=== PATIENT | female | born 1985 | race Caucasian/White ===

== ENCOUNTER 2017-01-25 10:07 | Emergency (ER) | payer OTHER ==
[2017-01-25 10:24] VITALS: RESP 18
[2017-01-25 11:00] LABS: COLOR COLORLESS; LEUKOCYTE ESTERASE,URINE NEGATIVE (NEGATIVE); NITRITE,URINE NEGATIVE (NEGATIVE)
--- NOTE | 2017-01-25 11:03 | EDPHY ---
H & P Smoking Status: Never smoked Time Seen by Provider: 01/25/17 10:32 HPI/ROS: CHIEF COMPLAINT: Urinary frequency, abdominal pain HISTORY OF PRESENT ILLNESS: 31-year-old female presents to the emergency department with urinary frequency that began yesterday. Denies urgency or dysuria. No blood in her urine. Last menstrual period was January 12 and she denies . She takes oral contraceptive pills has not "skipped any pills." Denies low back pain. Denies chest pain or difficulty breathing. Denies fevers or chills. Denies any reported trauma. REVIEW OF SYSTEMS: Constitutional: No fever, no chills. Eyes: No double or blurry vision. ENT: No sore throat. Respiratory: No cough, no shortness of breath. Cardiac: No chest pain. Gastrointestinal: No abdominal pain, vomiting or diarrhea. Genitourinary: Urinary frequency as above. No dysuria. Musculoskeletal: No neck or back pain. Skin: No rashes. Neurological: No headache. (Jeanette Abrams) Past Medical/Surgical History: Ovarian cysts (Jeanette Abrams) Social History: and lives in [place] (Jeanette Abrams) Physical Exam: General Appearance: Alert, no distress. Afebrile. Nontoxic appearing Eyes: Pupils equal and round. Extraocular motions are all intact. ENT: Mouth: Mucous membranes moist. Respiratory: No wheezing, rhonchi, or rales, lungs are clear to auscultation. Cardiovascular: Regular rate and rhythm. Gastrointestinal: Abdomen is soft. She has mild tenderness in the suprapubic area. There is no rebound, guarding or masses noted. No CVA tenderness bilaterally. Neurological: Alert and oriented x 3, cranial nerves II through XII grossly intact Skin: Warm and dry, no rashes. Musculoskeletal: Nontender to palpate along the cervical, thoracic or lumbar spine. Neck is supple. Extremities: Full range of motion and no peripheral edema. Psychiatric: Patient is oriented X 3, there is no agitation. (Jeanette Abrams M) Constitutional: Initial Vital Signs Temperature (C) 36.5 C 01/25/17 10:22 Heart Rate 87 01/25/17 10:22 Respiratory Rate 18 01/25/17 10:22 Blood Pressure 136/98 H 01/25/17 10:22 O2 Sat (%) 98 01/25/17 10:22 O2 Delivery Mode Room Air Allergies/Adverse Reactions: No Known Allergies Allergy (Verified 01/25/17 10:21) Home Medications: Medication Instructions Recorded Cephalexin [Keflex] 500 mg PO QID #28 cap 01/25/17 Ortho Tri-Cyclen 28 Tablet 01/25/17 Phenazopyridine HCl [Pyridium] 200 mg PO Q8PRN PRN #6 tab 01/25/17 Medical Decision Making - Diagnostics Imaging: Discussed imaging studies w/ call center manager Radiologist - Diagnostics Imaging Results: Imaging Impressions Abdomen Ultrasound 01/25/17 11:16 Impression: Nondiagnostic assessment of the appendix. If there is further clinical concern, contrast-enhanced CT imaging could be considered. Findings were discussed with JEANETTE ABRAMS PA-C at 12:54, on 01/25/2017. Pelvic/Renal Ultrasound 01/25/17 11:16 Impression: 1. Normal appearance of the uterus with small bilateral ovarian follicles, and no dominant adnexal mass or torsion. 2. Trace amount of free fluid in the posterior cul-de-sac. Findings were discussed with JEANETTE ABRAMS PA-C at 12:58 pm, on 01/25/2017. . ED Course/Re-evaluation: 31-year-old female presents to the emergency department with lower abdominal pain and urinary frequency. Urinalysis revealed specific gravity 1.001. The patient is very well hydrated. I did explain to the patient since her urine did not reveal any infection that this could possibly be due to her very dilute urine that is also colorless and that she may have a urinary tract infection that is not detected because of her very low specific gravity. HCG was negative. Laboratory studies reveal normal white blood cell count and normal chemistries. Pelvic ultrasound reveal small follicles in both ovaries without evidence of obvious ovarian cyst or torsion. The appendix is not well visualized, however the patient has no pain with palpation in the right lower quadrant. Did explain to the patient that the appendix was not visualized. Offered CT imaging of her abdomen and pelvis, however the patient agreed that she did not think this was indicated either since her pain is not over McBurney's point or in right lower quadrant. Case was discussed with Dr. Blanquita Pardo, secondary supervising physician, did not directly evaluate the patient but agrees with treatment and plan. The patient will be started on Keflex for possible early UTI. She was also given prescription for Pyridium. The patient is and monogamous. She is not concerned about sexually transmitted infections. Could have urethritis from intercourse and this was explained to the patient. Patient was instructed to return to the emergency department if she developed fever, vomiting, back pain, or if she felt worse in any way. (Jeanette Abrams) Differential Diagnosis: As including but not limited to urinary tract infection, pyelonephritis, kidney stone, intrauterine , ectopic , acute appendicitis (Jeanette Abrams) Other Provider: The patient was evaluated and managed by the Physician [employer] Electrician Apprentice/ Nurse Practitioner. I discussed the patient's presentation and course with the midlevel provider with them and agree with the evaluation. My co-signature indicates that I have reviewed this chart and I agree with the findings and plan of care as documented. I am the secondary supervising physician. (Blanquita Pardo) - Data Points Laboratory Results: Laboratory Results 01/25/17 11:25 01/25/17 11:25 01/25/17 01/25/17 01/25/17 11:25 11:25 10:30 WBC 4.62 10^3/uL 10^3/uL (3.80-9.50) RBC 4.33 10^6/uL 10^6/uL (4.18-5.33) Hgb 13.1 g/dL g/dL (12.6-16.3) Hct 38.6 % % (38.0-47.0) MCV 89.1 fL fL (81.5-99.8) MCH 30.3 pg pg (27.9-34.1) MCHC 33.9 g/dL g/dL (32.4-36.7) RDW 12.3 % % (11.5-15.2) Plt Count 264 10^3/uL 10^3/uL (150-400) MPV 10.9 fL fL (8.7-11.7) Neut % (Auto) 58.1 % % (39.3-74.2) Lymph % (Auto) 30.3 % % (15.0-45.0) [place] % (Auto) 6.9 % % (4.5-13.0) Eos % (Auto) 3.2 % % (0.6-7.6) Baso % (Auto) 1.3 % % (0.3-1.7) Nucleat RBC Rel Count 0.0 % % (0.0-0.2) Absolute Neuts (auto) 2.68 10^3/uL 10^3/uL (1.70-6.50) Absolute Lymphs (auto) 1.40 10^3/uL 10^3/uL (1.00-3.00) Absolute Monos (auto) 0.32 10^3/uL 10^3/uL (0.30-0.80) Absolute Eos (auto) 0.15 10^3/uL 10^3/uL (0.03-0.40) Absolute Basos (auto) 0.06 10^3/uL 10^3/uL (0.02-0.10) Absolute Nucleated RBC 0.00 10^3/uL 10^3/uL (0-0.01) Immature Gran % 0.2 % % (0.0-1.1) Immature Gran # 0.01 10^3/uL 10^3/uL (0.00-0.10) Sodium 140 mEq/L mEq/L (134-144) Potassium 4.1 mEq/L mEq/L (3.5-5.2) Chloride 105 mEq/L mEq/L (97-110) Carbon Dioxide 23 mEq/l mEq/l (22-31) Anion Gap 12 mEq/L mEq/L (8-16) BUN 6 mg/dL L mg/dL (7-23) Creatinine 0.7 mg/dL mg/dL (0.6-1.0) Estimated GFR > 60 Glucose 80 mg/dL mg/dL (70-100) Calcium 9.6 mg/dL mg/dL (8.5-10.4) Urine Color Urine Appearance Urine pH Ur Specific [place] Urine Protein Urine Ketones Urine Blood Urine Nitrate Urine Bilirubin Urine Urobilinogen Ur Leukocyte Esterase Urine RBC REJ Urine WBC REJ Ur Epithelial Cells REJ Urine Glucose Urine Test Urine Comment REJ 01/25/17 01/25/17 10:30 10:30 WBC RBC Hgb Hct MCV MCH MCHC RDW Plt Count MPV Neut % (Auto) Lymph % (Auto) [place] % (Auto) Eos % (Auto) Baso % (Auto) Nucleat RBC Rel Count Absolute Neuts (auto) Absolute Lymphs (auto) Absolute Monos (auto) Absolute Eos (auto) Absolute Basos (auto) Absolute Nucleated RBC Immature Gran % Immature Gran # Sodium Potassium Chloride Carbon Dioxide Anion Gap BUN Creatinine Estimated GFR Glucose Calcium Urine Color COLORLESS Urine Appearance CLEAR Urine pH 7.0 (5.0-7.5) Ur Specific [place] 1.001 L (1.002-1.030) Urine Protein NEGATIVE (NEGATIVE) Urine Ketones NEGATIVE (NEGATIVE) Urine Blood NEGATIVE (NEGATIVE) Urine Nitrate NEGATIVE (NEGATIVE) Urine Bilirubin NEGATIVE (NEGATIVE) Urine Urobilinogen NEGATIVE EU EU (0.2-1.0) Ur Leukocyte Esterase NEGATIVE (NEGATIVE) Urine RBC Urine WBC Ur Epithelial Cells Urine Glucose NEGATIVE (NEGATIVE) Urine Test NEGATIVE Urine Comment Departure - Departure Disposition: Home, Routine, Self-Care Clinical Impression: Urinary frequency Abdominal pain Qualifiers: Abdominal location: lower abdomen, unspecified Qualified Code(s): R10.30 - Lower abdominal pain, unspecified Condition: Good Instructions: Urinary Tract Infection in Women (ED) Additional Instructions: Pyridium as directed for urinary frequency. Keflex 500 mg 4 times daily for 5 days. Abdominal Pain: Return to the Emergency Department immediately for increasing pain, fever, vomiting, or if not completely better in 8-12 hours. Referrals: Krista Oconnor MD [Primary Care Provider] - 1-2 days without fail Prescriptions: Cephalexin [Keflex] 500 mg PO QID #28 cap Phenazopyridine HCl [Pyridium] 200 mg PO Q8PRN PRN #6 tab PRN Reason: P.r.n. urinary frequency
[2017-01-25 11:37] LABS: % IMMATURE GRANULYOCYTES 0.2 % (0.0-1.1); ABSOLUTE IMMATURE GRANULOCYTES 0.01 10^3/uL (0.00-0.10); ADD DIFF? NO; ADD MORPH? NO; ADD SCAN? NO; ATYPICAL LYMPHOCYTE FLAG 0 (0-99); FRAGMENT RBC FLAG 0 (0-99); HEMATOCRIT 38.6 % (38.0-47.0); HEMOGLOBIN 13.1 g/dL (12.6-16.3); LEFT SHIFT FLG 0 (0-99); LIPEMIA HEMOLYSIS FLAG 90 (0-99); MEAN CELL HEMOGLOBIN 30.3 pg (27.9-34.1); MEAN CELL HEMOGLOBIN CONCENTR. 33.9 g/dL (32.4-36.7); MEAN CELL VOLUME 89.1 fL (81.5-99.8); MEAN PLATELET VOLUME 10.9 fL (8.7-11.7); PLATELET CLUMPS FLAG 0 (0-99); PLATELET COUNT 264 10^3/uL (150-400); RED BLOOD CELL COUNT 4.33 10^6/uL (4.18-5.33); RED CELL DISTRIBUTION WIDTH 12.3 % (11.5-15.2)
[2017-01-25 11:50] LABS: ANION GAP 12 mEq/L (8-16); CALCIUM 9.6 mg/dL (8.5-10.4); CARBON DIOXIDE 23 mEq/l (22-31); CHLORIDE 105 mEq/L (97-110); CREATININE 0.7 mg/dL (0.6-1.0); GLOMERULAR FILTRATION RATE > 60; GLUCOSE 80 mg/dL (70-100); POTASSIUM 4.1 mEq/L (3.5-5.2); SODIUM 140 mEq/L (134-144)
[2017-01-25 13:45] VITALS: BP 109/87; PULSE 77; TEMP 98.4; O2SAT 97
== END 2017-01-25 13:45 | disposition home or self-care (01) ==
DX: R35.0 Frequency of micturition (principal); R10.30 Lower abdominal pain, unspecified

== ENCOUNTER 2018-03-18 14:33 | Emergency (ER) | payer OTHER ==
--- NOTE | 2018-03-18 15:41 | EDPHY ---
HPI/HX/ROS/PE/MDM Narrative: CHIEF COMPLAINT: UTI, back pain, nausea. HPI: This patient is a healthy 33 year old female complaining of back pain and nausea following a recent UTI diagnosis. She developed UTI symptoms including frequency, urgency, dysuria about two weeks ago when she was leaving for vacation to [place]. These resolved a few days into her trip but then returned. She visited a [facility] clinic 03/14 and was diagnosed with UTI by UA and began taking Macrobid. After starting the antibiotics, she initially began feeling better. Last night and today, she has had left-sided back pain and nausea. She describes her discomfort as a cramping, bruising pain in her upper left back. She continues to experience frequency and urgency. Denies fever. Denies history of kidney problems or any surgeries. No hematuria. No abnormal vaginal discharge. No chest pain, shortness of breath, or other associated symptoms. REVIEW OF SYSTEMS: A comprehensive 10 system review of systems is otherwise negative aside from elements mentioned in the history of present illness and medical decision making. PMH: Denies. SOCIAL HISTORY: . at bedside. Employed. Does not abuse tobacco, drugs, or alcohol. PHYSICAL EXAM: General:Patient is alert, in no acute distress. ENT:Eyes are normal to inspection. ENT inspection normal. Neck: Normal inspection. Full range of motion. Respiratory:No respiratory distress. Breath sounds normal bilaterally. Cardiovascular: Regular rate and rhythm. Strong peripheral pulses. Normal cap refill. Abdomen:The abdomen is nontender to palpation. There are no peritoneal signs. There are normal bowel sounds. Back: Normal to inspection. Mild left CVA tenderness. Skin: Normal color. No rash. Warm and dry. Extremities: Normal appearance. Full range of motion. Neuro: Oriented x3. Normal motor function. Normal sensory function. ED Course: 33 y/o female presents with 2 weeks of UTI symptoms with two days of nausea and upper back pain. Very mild left CVA tenderness on exam. Plan for UA. Reviewed UA. 1+ leuk esterase, 3+ bacteria present. Indicative of improving UTI. Discussed results with patient. Reviewed results from patient's prior UA at [facility] earlier this week. This has positive leukocytes as well, more severe. Patient endorses history of borderline hemochromatosis. Plan for labs including CBC, chemistries, BHCG for further evaluation. Reviewed laboratory results. WBC negative. Labs otherwise largely unremarkable. 17:01 Reassessed. Discussed laboratory results. Offered CT for further evaluation. She declines at this time. Plan to discharge home in good condition. She will continue taking Macrobid. She will take ibuprofen as needed for pain. Follow up and return precautions discussed. She is comfortable with this plan. MDM: This patient presents with left flank pain in the setting of recent treatment at another facility for UTI. Obviously, this raises the concern for pyelonephritis, but patient is afebrile, has a benign exam, normal WBC and a UA that looks much improved from her initial UA that led to diagnosis of UTI. I had an extensive discussion with the patient regarding this, and explained that I think pyelo is unlikely. She is not interested in further workup at this time , but will return to the ED if symptoms do not improve. She is not interested in switching antibiotics at this time. - Data Points Laboratory Results: Laboratory Results 03/18/18 16:06 03/18/18 16:06 03/18/1818 03/18/18 16:06 16:06 16:06 WBC 7.49 10^3/uL 10^3/uL (3.80-9.50) RBC 4.37 10^6/uL 10^6/uL (4.18-5.33) Hgb 12.7 g/dL g/dL (12.6-16.3) Hct 38.4 % % (38.0-47.0) MCV 87.9 fL fL (81.5-99.8) MCH 29.1 pg pg (27.9-34.1) MCHC 33.1 g/dL g/dL (32.4-36.7) RDW 13.6 % % (11.5-15.2) Plt Count 325 10^3/uL 10^3/uL (150-400) MPV 10.8 fL fL (8.7-11.7) Neut % (Auto) 61.4 % % (39.3-74.2) Lymph % (Auto) 28.3 % % (15.0-45.0) [place] % (Auto) 6.3 % % (4.5-13.0) Eos % (Auto) 3.1 % % (0.6-7.6) Baso % (Auto) 0.8 % % (0.3-1.7) Nucleat RBC Rel Count 0.0 % % (0.0-0.2) Absolute Neuts (auto) 4.60 10^3/uL 10^3/uL (1.70-6.50) Absolute Lymphs (auto) 2.12 10^3/uL 10^3/uL (1.00-3.00) Absolute Monos (auto) 0.47 10^3/uL 10^3/uL (0.30-0.80) Absolute Eos (auto) 0.23 10^3/uL 10^3/uL (0.03-0.40) Absolute Basos (auto) 0.06 10^3/uL 10^3/uL (0.02-0.10) Absolute Nucleated RBC 0.00 10^3/uL 10^3/uL (0-0.01) Immature Gran % 0.1 % % (0.0-1.1) Immature Gran # 0.01 10^3/uL 10^3/uL (0.00-0.10) Sodium 139 mEq/L mEq/L (135-145) Potassium 4.3 mEq/L mEq/L (3.5-5.2) Chloride 107 mEq/L mEq/L (97-110) Carbon Dioxide 24 mEq/l mEq/l (22-31) Anion Gap 8 mEq/L mEq/L (6-14) BUN 12 mg/dL mg/dL (7-23) Creatinine 0.7 mg/dL mg/dL (0.6-1.0) Estimated GFR > 60 Glucose 92 mg/dL mg/dL (70-100) Calcium 9.9 mg/dL mg/dL (8.5-10.4) Beta HCG, Qual NEGATIVE Urine Color Urine Appearance Urine pH Ur Specific [place] Urine Protein Urine Ketones Urine Blood Urine Nitrate Urine Bilirubin Urine Urobilinogen Ur Leukocyte Esterase Urine RBC Urine WBC Ur Epithelial Cells Urine Bacteria Urine Glucose 03/18/18 14:55 WBC RBC Hgb Hct MCV MCH MCHC RDW Plt Count MPV Neut % (Auto) Lymph % (Auto) [place] % (Auto) Eos % (Auto) Baso % (Auto) Nucleat RBC Rel Count Absolute Neuts (auto) Absolute Lymphs (auto) Absolute Monos (auto) Absolute Eos (auto) Absolute Basos (auto) Absolute Nucleated RBC Immature Gran % Immature Gran # Sodium Potassium Chloride Carbon Dioxide Anion Gap BUN Creatinine Estimated GFR Glucose Calcium Beta HCG, Qual Urine Color YELLOW Urine Appearance CLEAR Urine pH 7.0 (5.0-7.5) Ur Specific [place] 1.011 (1.002-1.030) Urine Protein NEGATIVE (NEGATIVE) Urine Ketones NEGATIVE (NEGATIVE) Urine Blood NEGATIVE (NEGATIVE) Urine Nitrate NEGATIVE (NEGATIVE) Urine Bilirubin NEGATIVE (NEGATIVE) Urine Urobilinogen NEGATIVE EU EU (0.2-1.0) Ur Leukocyte Esterase 1+ H (NEGATIVE) Urine RBC 1-3 /hpf /hpf (0-3) Urine WBC 1-3 /hpf /hpf (0-3) Ur Epithelial Cells TRACE /lpf /lpf (NONE-1+) Urine Bacteria 3+ /hpf H /hpf (NONE SEEN) Urine Glucose NEGATIVE (NEGATIVE) General Time Seen by Provider: 03/18/18 15:30 Initial Vital Signs: Initial Vital Signs Temperature (C) 36.3 C 03/18/18 14:40 Heart Rate 83 03/18/18 14:40 Respiratory Rate 18 03/18/18 14:40 Blood Pressure 127/93 H 03/18/18 14:40 O2 Sat (%) 98 03/18/18 14:40 O2 Delivery Mode Room Air Allergies/Adverse Reactions: No Known Allergies Allergy (Verified 03/18/18 14:39) Home Medications: Medication Instructions Recorded Ortho Tri-Cyclen 28 Tablet 01/25/17 Macrobid 03/18/18 Departure - Departure Disposition: Home, Routine, Self-Care Clinical Impression: Urinary tract infection, Left flank pain, Nausea Condition: Good Instructions: Urinary Tract Infection in Women (ED), Flank Pain (ED) Additional Instructions: Follow-up with your primary doctor within 72 hours. Stay well hydrated. Take ibuprofen 600mg every 6-8 hours as needed for pain. Continue taking Macrobid as prescribed. Return to the Emergency Department for fever, worsening pain, severe flank pain or failure to improve within 72 hours. Referrals: Krista Oconnor MD [Primary Care Provider] - As per Instructions Report Scribed for: [place] White Report Scribed by: Suzanna Kern Date of Report: 03/18/18 Time of Report: 15:47 Physician Review and Approval Statement: Portions of this note were transcribed by an ED scribe. I personally performed the history, physical exam, and medical decision making; and confirm the accuracy of the information in the transcribed note.
[2018-03-18 16:20] LABS: PLATELET COUNT 325 10^3/uL (150-400)
[2018-03-18 17:28] VITALS: BP 121/77
== END 2018-03-18 17:28 | disposition home or self-care (01) ==
DX: N39.0 Urinary tract infection, site not specified (principal); R11.0 Nausea